=== PATIENT | male | born 1995 | race African-American/Black ===

== ENCOUNTER 2025-08-13 15:01 | Emergency (ER) | payer OTHER, SELFPAY ==
--- NOTE | ~2025-08-13 | CT_ITS ---
CT lumbar spine wo con INDICATION: Back pain COMPARISON: None available. TECHNIQUE: Axial images of the lumbar spine were obtained without contrast. Additional coronal and sagittal reformatted images were rendered. FINDINGS: The axial images demonstrate no acute fracture or paravertebral soft tissue swelling. There is no high-grade central or foraminal stenosis. Mild degenerative changes with disc bulging and noted. Additional sagittal and coronal reformatted images were obtained. The lumbar vertebrae are in alignment. There is no compression fracture, subluxation, or paravertebral soft tissue swelling. The disc spaces are preserved. IMPRESSION: No acute compression fracture or spondylolysis. Mild degenerative disc disease with disc bulging. All CT scans at this facility are performed using low dose modulation techniques as appropriate to perform exam including the following: automated exposure control; use of iterative reconstruction technique; adjustment of the mA and/or kV according to patient size (this includes techniques or standardized protocols for targeted exams where dose is matched to indication/reason for exam). Reviewed, dictated and finalized at location [facility] IMPRESSION: No acute compression fracture or spondylolysis. Mild degenerative disc disease with disc bulging. All CT scans at this facility are performed using low dose modulation techniqu es as appropriate to perform exam including the following: automated exposure c ontrol; use of iterative reconstruction technique; adjustment of the mA and/or kV according to patient size (this includes techniques or standardized protocol s for targeted exams where dose is matched to indication/reason for exam).
[2025-08-13 15:14] VITALS: BP 141/78; PULSE 74; RESP 16; TEMP 37.1; O2SAT 100
--- NOTE | 2025-08-13 17:02 | ED.BACK ---
HPI - Back Pain/Injury General Chief Complaint: Back Pain/Injury Stated Complaint: back pain, lower Time Seen by Provider: 08/13/25 16:55 History of Present Illness HPI Narrative: Pt is a 30-year-old male who presents to the ER with complaints of bilateral lower back pain. He reports he injured his back approximately 1 month ago at work. Patient reports the pain became worse this morning. He reports he has been doing physical therapy with no relief. Patient denies any medical history relevant to this ER visit. He denies any saddle anesthesia, loss of continence, abdominal pain or recent fevers. Related Data Allergies Allergy/AdvReac Type Severity Reaction Status Date / Time No Known Allergies Allergy Verified 08/13/25 15:17 Review of Systems Review of Systems: All systems reviewed & are unremarkable except as noted in HPI and below Exam Narrative: GENERAL: Well appearing, well-nourished, non-toxic, in no acute distress. HEAD: Normocephalic, atraumatic. NECK: Supple. No adenopathy, no masses. RESPIRATORY: Airway patent, respirations nonlabored. Clear to auscultation bilaterally, no rales, rhonchi, wheezing. CARDIOVASCULAR: Regular rate and rhythm without murmurs, rubs, or gallops. Peripheral pulses 2+ and equal bilaterally. ABDOMINAL: Soft, nontender, nondistended, no hepatosplenomegaly. Normoactive BS. MUSCULOSKELETAL: Moves all extremities. Strength/ROM intact without gross deformities. Tenderness to lower spine with palpation SKIN: Warm, dry, normal color. No rashes. NEURO: A&O X3. Speech clear. Cranial nerves II-XII intact. No ataxic movements. PSYCHIATRIC: Appropriate mood and affect. Normal interaction. Course Vital Signs Vital signs: Vital Signs Temperature 37.1 C 08/13/25 15:14 Pulse Rate 74 08/13/25 15:14 Respiratory Rate 16 08/13/25 15:14 Blood Pressure 141/78 H 08/13/25 15:14 Pulse Oximetry 100 08/13/25 15:14 Oxygen Delivery Room Air 08/13/25 15:14 Temperature 37.1 C 08/13/25 15:14 Pulse Rate 74 08/13/25 15:14 Respiratory Rate 16 08/13/25 15:14 Blood Pressure 141/78 H 08/13/25 15:14 Pulse Oximetry 100 08/13/25 15:14 Oxygen Delivery Room Air 08/13/25 15:14 MDM - Back Pain/Injury MDM Narrative Medical decision making narrative: Pt is a 30-year-old male who presents to the ER with complaints of bilateral lower back pain. He reports he injured his back approximately 1 month ago at work. Patient reports the pain became worse this morning. He reports he has been doing physical therapy with no relief. Patient denies any medical history relevant to this ER visit. He denies any saddle anesthesia, loss of continence, abdominal pain or recent fevers. Labs Ordered: None necessary Imaging Ordered: CT lumbar spine Medications Ordered: Prednisone 40 mg p.o., Toradol 60 mg IM Results: Patient's CT scan indicates No acute compression fracture or spondylolysis. Mild degenerative disc disease with disc bulging. Diagnosis: Degenerative disc disease Consults: neurosurgery (outpatient) Patient Education/Shared MDM: Results of imaging shared with patient. He endorses improvement of symptoms following medication administration. Patient strongly advised to maintain hydration status upon discharge and follow-up with Neurosurgery as soon as possible. He will be discharged home with a prescription for steroids, muscle relaxants, and lidocaine patches. Strict return precautions provided. Patient verbalized understanding and is in agreement with plan. Vital signs stable at time of discharge. All questions answered. Differential Diagnosis Differential diagnosis: Likely lumbar radiculopathy, strain of lumbar region and discitis Imaging Data Attestation: I personally reviewed and interpreted this imaging study as follows: Radiologist's impression: Impressions Lumbar Spine CT 08/13/25 17:28 IMPRESSION: No acute compression fracture or spondylolysis. Mild degenerative disc disease with disc bulging. All CT scans at this facility are performed using low dose modulation techniques as appropriate to perform exam including the following: automated exposure control; use of iterative reconstruction technique; adjustment of the mA and/or kV according to patient size (this includes techniques or standardized protocols for targeted exams where dose is matched to indication/reason for exam). Discharge Plan Discharge Clinical Impression: Degenerative disc disease, Bulging discs Patient Disposition: Home Condition: Stable Instructions: Antibiotic Form, Back Pain (ED) Additional Instructions: Please return to the ER with any worsening symptoms. Follow-up with neurosurgery as soon as possible. Take all medications as prescribed. You may take ibuprofen, steroids, muscle relaxants and lidocaine patches for pain control. Patient Language: Tamazight Prescriptions: New prednisone 20 mg tablet 20 mg PO BID Qty: 10 0RF lidocaine 5 % adhesive patch,medicated 2 patch topical DAILY Qty: 30 0RF Rx Instructions: leave on most painful area for up to 12 hrs cyclobenzaprine 5 mg tablet 5 mg PO TID PRN (Reason: muscle spasm) Qty: 30 0RF Follow-up/Referrals: Win Yang MD [Physician, Neurosurgery] PHYSICIAN,CLINICAL IMPLEMENTATION SPECIALIST [Primary Care Provider, Internal Medicine] Stand Alone Forms: Work/School Release IP Time of Disposition: 18:09
--- OUTSIDE RECORDS SUMMARY | 2025-08-13 17:11 | XMS_ITS | Clinical Summary ---
Author Organization [facility] Address [address] [address] Phone Care Team Providers Care Parking Lot Manager Name Role Phone Juan Francisco Abraham MD Primary Care Provider [phone] Allergies No known active allergies Medications No known medications Active Problems Problem Noted Date Diagnosed Date Well adult exam 03/17/2023 Immunizations Immunization Administration Dates Next Due Influenza, Unspecified 08/31/2022(Deferred: Татьяна ent decision) Family History Relation Name Status Comments Father Alive Mother Alive Social History Tobacco Use Types Packs/Day Years Used Date Smoking Tobacco: Never Passive Smoke Exposure: Never Smokeless Tobacco: Never Tobacco Cessation:Counseling Given: No AUDIT-C Answer Date Recorded Q1: How often do you have a drink containing alcohol? Never 04/06/2023 Q2: How many drinks containi ng alcohol do you have on a typical day when you are drinking? Patient does not drink Q3: How often do you have si x or more drinks on one occasion? Never 04/06/2023 PHQ-2 Answer Date Recorded PHQ-2 Total Score (If total score is 3 or more points, staff should administer the PHQ-9) 0 04/06/2023 Personal Safety Answer Date Recorded Getting School Help Needed Not on file 12/15 Sex and Gender Information Value Date Recorded Sex Assigned at Not on file Legal Sex Male 12:57 PM CDT Gender Identity Not on file Sexual Orientation Not on file Last Filed Vital Signs Vital Sign Reading Time Taken Comments Blood Pressure 120/74 04/06/2023 9:38 AM CDT Pulse 80 04/06/2023 9:38 AM CDT Temperature 36.7 C (98 F) 04/06/2023 9:38 AM CDT Respiratory Rate 18 04/06/2023 9:38 AM CDT Oxygen Saturation 98% 04/06/2023 9:38 AM CDT Inhaled Oxygen Concentration - - Weight 80.2 kg (176 lb 12.8 oz) 04/06/2023 9:38 AM CDT Height 184.2 cm (6' 0.5) 04/06/2023 9:38 AM CDT Body Mass Index 23.65 04/06/2023 9:38 AM CDT Plan of Treatment Health Maintenance Due Date Last Done Comments Hepatitis C Screening 1995 HPV Vaccines (2 - Male 3-dose series) 05/29/2013 05/01/2013 DTaP/Tdap/Td Vaccine (7 - Td or Tdap) 06/29/2018 06/29/2008, 03/02/2000, 11/15/1996, Additional history exists Depression Screening 04/06/2024 04/06/2023 Regular Well Visit/Exam 18-64 04/06/2024 04/06/2023 Influenza Vaccine (#1) 2025 Hepatitis B Screening Completed 04/01/1996 , 1995, 1995 Varicella Vaccines Completed 06/29/2008, 07/04/1996 Pneumococcal vaccine <65 Aged Out No longer eligible based on patient's age to complete this topic Insurance [facility] [employer] [facility] Care Teams Parking Lot Manager Relationship Specialty Start Date End Date Juan Francisco Abraham MD [address] [place] [id number] PCP - General Family Practice 04/06/23
[2025-08-13] MEDS: KETOROLAC (*BKC) 60 MG/2 ML VIAL IM (17:39)
== END 2025-08-13 18:16 | disposition home or self-care (01) ==
PROVIDERS: Emergency Provider Registered Nurse
DX: M51.369 Other intervertebral disc degeneration, lumbar region without mention of lumbar back pain or lower extremity pain (principal)
CPT/HCPCS: 72131; 96372; 99283; J1885; J7512